=== PATIENT | male | born 1985 | race Native Hawaiian/Other Pacific Islander ===

== ENCOUNTER 2020-09-05 14:06 | Outpatient (CLI) | payer BC, OTHER | END 2020-09-05 22:58 | disposition home or self-care (01) | LOC: INF 14:06 | PROVIDERS: ATTEND Internal Medicine | DX: Z23 Encounter for immunization (principal) | CPT/HCPCS: 96372 ==

== ENCOUNTER 2020-09-27 15:06 | Outpatient (CLI) | payer BC, OTHER | END 2020-09-27 19:58 | disposition home or self-care (01) | LOC: INF | PROVIDERS: ATTEND Internal Medicine | DX: Z23 Encounter for immunization (principal) | CPT/HCPCS: 96372 ==